=== PATIENT | male | born 1955 | race Caucasian/White ===

== ENCOUNTER 2017-08-15 11:23 | Day surgery (SDC) | payer OTHER ==
[2017-08-15] MEDS ORDERED: LIDOCAINE 1% (MDV) 20 ML INJ (13:51)
[2017-08-15] MEDS ORDERED: PROPOFOL 20 ML (13:51)
[2017-08-15] MEDS ORDERED: MIDAZOLAM 1 MG/ML 2 ML INJ (13:51)
[2017-08-15] MEDS ORDERED: LIDOCAINE 1% (MPF) 30 ML INJ (13:55)
[2017-08-15] MEDS ORDERED: LIDOCAINE 1%/EPI 30 ML INJ (13:55)
== END 2017-08-15 16:49 | disposition home or self-care (01) ==
LOC: SDS 11:23
DX: J44.9 Chronic obstructive pulmonary disease, unspecified (principal)
CPT/HCPCS: 31622; 71045; 87102; 87116; 93005

== ENCOUNTER 2017-10-03 14:34 | Outpatient (CLI) | payer OTHER | END 2017-10-03 15:45 | disposition home or self-care (01) | LOC: HPC 14:34 | DX: K76.89 Other specified diseases of liver (principal); B19.20 Unspecified viral hepatitis C without hepatic coma; K76.0 Fatty (change of) liver, not elsewhere classified; F10.11 Alcohol abuse, in remission; N13.9 Obstructive and reflux uropathy, unspecified; N31.9 Neuromuscular dysfunction of bladder, unspecified; J44.9 Chronic obstructive pulmonary disease, unspecified; Z72.0 Tobacco use | CPT/HCPCS: Z7500 ==

== ENCOUNTER 2018-11-30 05:45 | Day surgery (SDC) | payer OTHER ==
[2018-11-30] MEDS ORDERED: BUPIVACAINE 0.5%/EPI (SDV) 10 ML INJ (06:53)
[2018-11-30] MEDS: BACITRACIN/POLYMYXIN 28.35 GM OINT TOP (06:59)
[2018-11-30] MEDS ORDERED: ROCURONIUM 50 MG INJ (07:00)
[2018-11-30] MEDS ORDERED: LIDOCAINE 2% (SDV) 5 ML INJ (07:00)
[2018-11-30] MEDS ORDERED: PROPOFOL 200 MG INJ (07:00)
[2018-11-30] MEDS ORDERED: SEVOFLURANE 15 MIN (07:00)
[2018-11-30] MEDS ORDERED: FENTAnyl 50 MCG/ML VIAL (07:08)
[2018-11-30] MEDS ORDERED: MIDAZOLAM 1 MG/ML 2 ML INJ (07:08)
[2018-11-30] MEDS ORDERED: ONDANSETRON 4 MG INJ (07:45)
[2018-11-30] MEDS ORDERED: DEXAMETHASONE 4 MG/ML 5 ML INJ (07:45)
[2018-11-30] MEDS: CEFTRIAXONE 1 GM/50 ML (PMX) 50 ML IVPB (08:00)
[2018-11-30] MEDS ORDERED: HYDROmorphONE 2 MG/ML SYG (08:11)
[2018-11-30] MEDS ORDERED: LABETALOL HCL 20MG INJ IV (08:30)
[2018-11-30] MEDS ORDERED: ONDANSETRON 4 MG INJ IV (08:30)
[2018-11-30] MEDS ORDERED: EPHEDrine SULFATE 50 MG/5 ML SYG IV (08:30)
[2018-11-30] MEDS ORDERED: ALBUTEROL 0.083% (NEB) 2.5 MG/3 ML AMP HHN (08:30)
[2018-11-30] MEDS ORDERED: hydrALAzine 20 MG INJ IV (08:30)
[2018-11-30] MEDS ORDERED: METOCLOPRAMIDE 10 MG INJ IV (08:30)
[2018-11-30] MEDS ORDERED: FENTAnyl 50 MCG/ML VIAL IV ×2 (08:30)
[2018-11-30] MEDS ORDERED: OXYCODONE/ACETAMINOPHEN (5/325) TAB PO ×2 (08:30)
[2018-11-30] MEDS: BUPIVACAINE 0.5% (SDV) 30 ML INJ (08:53)
[2018-11-30] MEDS: HYDROmorphONE 1 MG/5 ML IV SYRINGE IV ×2 (09:48→10:03)
[2018-11-30] MEDS: HYDROCODONE/APAP (5/325) TAB PO (11:10)
== END 2018-11-30 11:20 | disposition home or self-care (01) ==
LOC: SDS 05:45
DX: N43.3 Hydrocele, unspecified (principal); N43.40 Spermatocele of epididymis, unspecified; J44.9 Chronic obstructive pulmonary disease, unspecified; I12.9 Hypertensive chronic kidney disease with stage 1 through stage 4 chronic kidney disease, or unspecified chronic kidney disease; N18.9 Chronic kidney disease, unspecified
CPT/HCPCS: 55041; 88302